=== PATIENT | female | born 1960 | race Caucasian/White ===

== ENCOUNTER 2017-07-10 08:13 | Day surgery (SDC) | payer BC ==
[~2017-07-10] VITALS: Ht 165.1 cm; Wt 66.2 kg
--- NOTE | ~2017-07-10 | OP ---
PATIENT NAME: IRENE ADAME MEDICAL RECORD: [id number] :56 LOCATION:D.OPS ADMISSION DATE: SURGEON: ONOFRE HOPE MD DATE OF OPERATION: 07/10/2017 PREOPERATIVE DIAGNOSES: Tubular adenoma of the colon, across from the ileocecal valve. POSTOPERATIVE DIAGNOSES: Tubular adenoma of the colon, across from the ileocecal valve with a secondary cecal polyp, which was a sessile polyp and was 1.1 cm in greatest dimension. PROCEDURES: 1. Total colonoscopy to cecum. 2. Hot biopsy forceps polypectomy times 1. 3. Polypectomy of the larger polyp, which was along the fold and was a 3.1 cm polyp, the argon plasma director electronics was utilized with the right colon setting in the forced mode. The risks, possible complications and alternatives to procedure were explained to the patient. She elects to proceed. OPERATIVE COURSE: The patient was conveyed to the operating room electively on 07/10/2017. General anesthesia was induced by the anesthesia staff. The patient was placed in the De [place] position. A digital rectal examination was performed. A colonoscope was inserted through the anus. It was easily advanced to the cecum. The prep was adequate. A cecal hot biopsy forceps polypectomy was performed and the polyp was removed in its entirety. Cold endoscopic biopsies were performed of the larger polyp and I ablated the polypoid base with the argon plasma director electronics. I then slowly withdrew the endoscope. The pullback was greater than a 15-minute pullback. I dragged the folds. I irrigated and aspirated extensively. A combination of normal imaging as well as narrow band imaging was performed. A retroflexed view was obtained in the rectum. I then unretroflexed the scope and removed it under direct vision. I will see the patient in my office in 2-3 weeks. I will plan for her next colonoscopy to take place with the argon plasma director electronics in 1 year. TRANSINT:[id number] Voice Confirmation ID: [id number] DOCUMENT ID: [id number] ONOFRE HOPE MD at 1042 CC: NAHUM LOU DO [id number] DICTATION DATE: 07/10/17 1108 PILOT BOAT OPERATOR: 07/10/17 1154 [facility] 07/10/17 [place] [id number] [place], [place] [id number]
[~2017-07-10 08:13] MED LIST: OMEPRAZOLE40 MG PO
[2017-07-10 09:28] VITALS: BP 138/75; Ht 165.1 cm; Wt 66.2 kg
[2017-07-10 10:05] LABS: HEMOGLOBIN 12.5 g/dL (12-16); MCH 28.5 pg (26.0-34.0); MCHC 32.1 g/dL (31.0-37.0); MEAN PLATELET VOLUME 10.9 fL (7.4-10.4); RBC 4.38 10x6/uL (4.00-5.40); WBC 6.3 10x3/uL (4.8-10.8)
== END 2017-07-10 14:40 | disposition home or self-care (01) ==
LOC: D.OPS 08:13 → D.PAN 11:00 → D.OPS 14:40
PROVIDERS: Anesthesiology
DX: D12.6 Benign neoplasm of colon, unspecified (principal); D12.0 Benign neoplasm of cecum; K44.9 Diaphragmatic hernia without obstruction or gangrene; K22.70 Barrett's esophagus without dysplasia; Z01.812 Encounter for preprocedural laboratory examination

== ENCOUNTER 2018-07-22 06:35 | Day surgery (SDC) | payer BC ==
[~2018-07-22] VITALS: Ht 165.1 cm; Wt 63.6 kg
[2018-07-22 07:04] LABS: BASOPHILS 0 % (0-2); EOSINOPHILS 2.7 % (0-7); HEMATOCRIT 37.7 % (36.0-48.0); HEMOGLOBIN 12.1 g/dL (12-16); LYMPHOCYTES 46.9 % (15-50); MCHC 32.1 g/dL (31.0-37.0); MCV 90.4 fL (80.0-100.0); MEAN PLATELET VOLUME 10.5 fL (7.4-10.4); NEUTROPHILS 42.4 % (40-80); PLATELET COUNT 187 10x3/uL (130-400); RBC 4.17 10x6/uL (4.00-5.40); RDW 13.4 % (11.5-14.5); WBC 5.1 10x3/uL (4.8-10.8)
[2018-07-22 07:24] LABS: ANION GAP 14.2 mmol/L (8-16); CALCIUM 8.8 mg/dL (8.5-10.1); CREATININE - SERUM 0.9 mg/dL (0.6-1.3); POTASSIUM - SERUM 4.2 mmol/L (3.5-5.1)
[2018-07-22] MEDS ORDERED: ACETAMINOPHEN325 MG PO (07:29)
[2018-07-22 08:28] VITALS: BP 115/63; Ht 165.1 cm; Wt 63.6 kg
--- NOTE | 2018-07-22 12:27 | NUR ---
DC INSTRUCTIONS GIVEN TO PT/FAMILY. STATE UNDERSTANDING . DC'D IV CATH FULLY INTACT.
--- NOTE | 2018-07-22 12:32 | NUR ---
PT LEFT UNIT VIA WC AT 1230
--- NOTE | 2018-07-23 14:51 | OP ---
PATIENT NAME: IRENE ADAME MEDICAL RECORD: [id number] :56 LOCATION:D.OPS ADMISSION DATE: SURGEON: ONOFRE HOPE MD DATE OF OPERATION: 07/22/2018 PREOPERATIVE DIAGNOSES: 1. History of tubular adenoma of the cecum. 2. History of tubular adenoma across from the ileocecal valve. POSTOPERATIVE DIAGNOSES: 1. History of tubular adenoma of the cecum. 2. History of tubular adenoma across from the ileocecal valve with no evidence of regrowth of these polyps. 3. Two flat polyps were noted and are best seen by narrow band imaging. PROCEDURES: 1. Total colonoscopy to cecum. 2. Hot biopsy forceps polypectomies times 2. 3. Cold endoscopic biopsy of the ascending colon scar. SURGEON: Onofre Hope MD UNDER GROUND MINER: None. BLOOD LOSS: Minimal. ANESTHESIA: IV sedation. COMPLICATIONS: None. The risks, possible complications, and alternatives to the procedure were explained to the patient. She elects to proceed. Discussion specifically included, but was not limited to, bleeding requiring emergency reoperation, infection, endoscopic perforation. ENDOSCOPIC COURSE: The patient was conveyed to endoscopy suite electively on 07/22/2018. IV sedation was induced by the anesthesia staff. The patient was placed in the De [place] position. A digital rectal examination was performed. A colonoscope was inserted through the anus. It was easily advanced to the cecum. The prep was excellent. I slowly withdrew the endoscope. A combination of normal imaging and narrow band imaging were utilized. There were 2 polyps noted. These are both flat polyps that the best seen through narrow band imaging. One polyp was a 7-mm polyp, the other was a 1.1 cm polyp. Both were removed in their entireties utilizing the hot biopsy forceps polypectomy technique. I then performed cold endoscopic biopsy of the scar at the previous polypectomy site across from the ileocecal valve. I slowly withdrew the endoscope. I dragged the folds. The pullback was greater than 13-minute pullback. A retroflexed view was obtained in the rectum. I then unretroflexed the scope and removed it under direct vision. I plan to see the patient in my office in 2-3 weeks. It is very likely I will return her endoscopic needs back over to Dr. Lewis at that time. TRANSINT:[id number] Voice Confirmation ID: [id number] DOCUMENT ID: [id number] OPERATIVE REPORT [id number] IRENE ADAME, ONOFRE NOYOLA at 1451 CC: AYSHA NORRIS and NAHUM LEWIS DO [id number] DICTATION DATE: 07/22/18 1129 PATIENT SITTER: 07/22/18 1238 [facility] 07/22/18 [place] [id number] [place] [id number]
--- NOTE | 2018-07-23 14:51 | HP ---
PATIENT: IRENE ADAME MEDICAL RECORD: [id number] ACCOUNT: [id number] LOCATION:[facility] : 56 ADMISSION DATE: 07/22/18 PCP: AYSHA NORRIS HISTORY AND PHYSICAL EXAMINATION HISTORY OF PRESENT ILLNESS: The patient has a history of complex polyps. She had a tubular adenoma across from the ileocecal valve as well as another sessile polyp in the cecum. She underwent polypectomies utilizing the argon plasma supervisor mirror fabrication back in 07/10/2017. The pathology revealed that both polyps were tubular adenomas. PAST MEDICAL AND SURGICAL HISTORY: Gastroesophageal reflux, history of CVA. PAST SURGICAL HISTORY: Craniotomy. SOCIAL HISTORY: Ex-smoker. HOME MEDICINES: Tylenol. ALLERGIES: SULFA. PHYSICAL EXAMINATION: GENERAL: The patient does not appear acutely ill. She does not appear chronically ill. VITAL SIGNS: Reviewed. EARS: External ears appear normal. EYES: Extraocular movements are intact. NECK: Trachea midline. CHEST: No intercostal retractions. PULMONARY: Nonlabored. IMPRESSION: History of cecal and ascending colon polyps. PLAN: Colonoscopy and polypectomy utilizing the argon plasma supervisor mirror fabrication. TRANSINT:[id number] Voice Confirmation ID: [id number] DOCUMENT ID: [id number] ONOFRE HOPE MD at 1451 CC: AYSHA NORRIS and NAHUM LOU DO [id number] DICTATION DATE: 07/22/18 1055 SHAPE HAND: 07/22/18 1134 [facility] 07/22/18 [place] [id number] [place] [id number]
== END 2018-07-22 12:30 | disposition home or self-care (01) ==
LOC: D.OPS 06:35
PROVIDERS: Anesthesiology; ATTEND Surgery
DX: D12.0 Benign neoplasm of cecum (principal); D12.3 Benign neoplasm of transverse colon; Z01.812 Encounter for preprocedural laboratory examination

== ENCOUNTER → 2019-09-15 09:19 | Outpatient (CLI) | payer BC ==
[2018-07-22 08:28] VITALS: BMI 23.3
[~2019-09-15 09:19] MED LIST changes: +ACETAMINOPHEN325 MG PO
== END | disposition home or self-care (01) ==
LOC: D.US 08-24 09:30
PROVIDERS: ATTEND Internal Medicine Gastroenterology
DX: R10.11 Right upper quadrant pain (principal); K21.9 Gastro-esophageal reflux disease without esophagitis

== ENCOUNTER 2020-01-12 05:41 | Day surgery (SDC) | payer BC ==
[~2020-01-12] VITALS: Ht 165.1 cm; Wt 65.9 kg
[2020-01-12 06:13] LABS: BASOPHILS 0.2 % (0-2); EOSINOPHILS 2.1 % (0-7); HEMATOCRIT 41.6 % (36.0-48.0); IMMATURE GRANULOCYTES 0.2 % (0-5); LYMPHOCYTES 35.3 % (15-50); MCH 28.1 pg (26.0-34.0); MCHC 31.3 g/dL (31.0-37.0); MCV 89.8 fL (80.0-100.0); MEAN PLATELET VOLUME 10.2 fL (7.4-10.4); NEUTROPHILS 55.2 % (40-80); PLATELET COUNT 224 10x3/uL (130-400); RBC 4.63 10x6/uL (4.00-5.40); RDW 13.1 % (11.5-14.5); WBC 5.8 10x3/uL (4.8-10.8)
[2020-01-12 06:15] LABS: APTT 30.3 SECONDS (22.8-39.4); INR 0.89 (0.85-1.17)
[2020-01-12 06:50] VITALS: Ht 165.1 cm; Wt 65.9 kg
[2020-01-12] MEDS ORDERED: CITRACAL (06:57)
--- NOTE | 2020-01-12 10:24 | NUR ---
[address] HOPE. PROCEDURE FINDINGS DISCUSSED WITH PATIENT. Cecilia BAXTER R.N.
--- NOTE | 2020-01-12 10:55 | NUR ---
1047 DRESSED. AWAKE & ALERT. GIVEN DISCHARGE INFORMATION INCLUDING: MED REC, SHEET LISTING NSAIDS TO AVOID, RTC APPT. & [facility] POST ENDOSCOPIC D/C INSTRUCTIONS. VOICED UNDERSTANDING. TO PRIVATE CAR PER WHEELCHAIR BY Effie BARRERA R.N.. HOME WITH . Cecilia BAXTER R.N.
--- NOTE | 2020-01-12 15:11 | HP ---
PATIENT: IRENE ADAME MEDICAL RECORD: [id number] ACCOUNT: [id number] LOCATION:[facility] : 56 ADMISSION DATE: 01/12/20 PCP: AYSHA NORRIS HISTORY AND PHYSICAL EXAMINATION HISTORY OF PRESENT ILLNESS: The patient has a complex polyp, which is a 2.5 polyp in the ascending colon across from the ileocecal valve. She is here for colonoscopy with polypectomy. ALLERGIES: SULFA. HOME MEDICATIONS: Please see the nursing list. PAST MEDICAL AND SURGICAL HISTORY: section, diverticulitis, reflux, colon polyps, tubular adenoma. PHYSICAL EXAMINATION: GENERAL: The patient does not appear acutely ill. She does not appear chronically ill. VITAL SIGNS: Reviewed. EARS: External ears appear normal. EYES: Extraocular movements are intact. NECK: Trachea is midline. CHEST: No intercostal retractions. PULMONARY: Nonlabored, no stridor. IMPRESSION: Complex polyp in the ascending colon across from the ileocecal valve. PLAN: Colonoscopy with polypectomy. TRANSINT:[id number] Voice Confirmation ID: [id number] DOCUMENT ID: [id number] ONOFRE HOPE MD at 1511 CC: AYSHA NORRIS and NAHUM LOU DO [id number] DICTATION DATE: 01/12/20926 HUMAN RESOURCES TRAINER: 01/12/20 1015 [facility] 01/12/20 [facility] [address] [place] [address]
--- NOTE | 2020-01-13 12:32 | OP ---
PATIENT NAME: IRENE ADAME MEDICAL RECORD: [id number] :56 LOCATION:D.OPS ADMISSION DATE: SURGEON: ONOFRE HOPE MD DATE OF OPERATION: 01/12/2020 PREOPERATIVE DIAGNOSIS: Ascending colon polyp across from the ileocecal valve. POSTOPERATIVE DIAGNOSIS: Ascending colon polyp across from the ileocecal valve. PROCEDURES: 1. Total colonoscopy to cecum. 2. Hot biopsy forceps polypectomy times 1. SURGEON: Onofre Hope MD MISSILE TECHNICIAN: None. BLOOD LOSS: Minimal. ANESTHESIA: IV sedation. COMPLICATIONS: None. The risks, possible complications and alternatives to the procedure were explained to the patient. She elects to proceed. OPERATIVE COURSE: The patient was conveyed to the gastroenterology laboratory on 01/12/2020. IV sedation was induced by the anesthesia staff. The patient was placed in the De [place] position. A digital rectal examination was performed. A colonoscope was inserted through the anus. It was easily advanced to the cecum. The prep was adequate. The appendiceal orifice and ileocecal valve were easily identified. The polyp was best seen with narrow band imaging. It was removed in its entirety utilizing the hot biopsy forceps polypectomy technique. I slowly withdrew the endoscope. I irrigated and aspirated extensively. I dragged the folds. The pullback was greater than a 14-minute pullback. A retroflexed view was obtained in the rectum. This revealed enlarged internal hemorrhoids. I then unretroflexed the scope and removed it under direct vision. I will see the patient in my office in 2-3 weeks. I will plan for her next surveillance colonoscopy to take place in 3 years. TRANSINT:[id number] Voice Confirmation ID: [id number] DOCUMENT ID: [id number] ONOFRE HOPE MD at 1232 CC: AYSHA NORRIS and NAHUM LOU DO [id number] DICTATION DATE: 01/12/20 1006 CEREAL CHEMIST: 01/12/20 1845 [facility] 01/12/20 [facility] [address] [place] [address]
== END 2020-01-12 10:47 | disposition home or self-care (01) ==
LOC: D.OPS 05:41
PROVIDERS: Anesthesiology; ATTEND Surgery
DX: K63.5 Polyp of colon (principal); Z86.010 Personal history of colon polyps

== ENCOUNTER 2020-01-15 13:16 | Observation (INO) | payer BC ==
[~2020-01-15] VITALS: Ht 165.1 cm; Wt 65.9 kg
[~2020-01-15 13:16] MED LIST changes: +CITRACAL PO
[2020-01-15 14:24] LABS: BASOPHILS 0.1 % (0-2); EOSINOPHILS 0.8 % (0-7); HEMATOCRIT 37.5 % (36.0-48.0); HEMOGLOBIN 11.9 g/dL (12-16); IMMATURE GRANULOCYTES 0.2 % (0-5); LYMPHOCYTES 17.1 % (15-50); MCH 28.5 pg (26.0-34.0); MCHC 31.7 g/dL (31.0-37.0); MCV 89.7 fL (80.0-100.0); MEAN PLATELET VOLUME 10.8 fL (7.4-10.4); MONOCYTES 5.3 % (2-11); NEUTROPHILS 76.5 % (40-80); PLATELET COUNT 220 10x3/uL (130-400); RBC 4.18 10x6/uL (4.00-5.40); RDW 12.9 % (11.5-14.5); WBC 11.6 10x3/uL (4.8-10.8)
[2020-01-15 14:31] LABS: CALC OSMOLALITY 275 mosm/kg (275-300); CALCIUM 9.6 mg/dL (8.5-10.1); CHLORIDE - SERUM 104 mmol/L (98-107); CREATININE - SERUM 0.8 mg/dL (0.6-1.3); GLUCOSE 108 mg/dL (74-106); POTASSIUM - SERUM 4.7 mmol/L (3.5-5.1); SODIUM 137 mmol/L (136-145); UREA NITROGEN 14 mg/dL (7-18); eGFR NON AFRICAN AMERICAN 77 mL/min (90-120)
[2020-01-15 14:36] LABS: APTT 26.1 SECONDS (22.8-39.4); INR 0.94 (0.85-1.17); PROTIME 12.5 SECONDS (11.6-15.0)
[2020-01-15 14:40] LABS: BILIRUBIN NEGATIVE (NEGATIVE); KETONE NEGATIVE (NEGATIVE); NITRITE NEGATIVE (NEGATIVE); UROBILINOGEN NORMAL mg/dL (< 2)
[2020-01-15 14:41] LABS: BACTERIA FEW HPF (NONE SEEN); EPITHELIAL CELLS 0-5 /hpf (0-5); WHITE CELLS - URINE 0-5 HPF (0-4)
[2020-01-15 14:48] LABS: ALKALINE PHOSPHATASE 93 U/L (30-120); ALT (SGPT) 22 U/L (10-68); BILIRUBIN - TOTAL 0.32 mg/dL (0.2-1.3); CKMB 0.9 U/L (0.0-3.6); CREATINE KINASE 79 UL (21-215); PROTEIN - SERUM 7.3 g/dL (6.4-8.2); TROPONIN-I < 0.017 ng/mL (0.000-0.060)
--- NOTE | 2020-01-15 16:07 | NUR ---
PT TO CT
[2020-01-15 16:51] VITALS: BP 144/75
[2020-01-15 17:17] VITALS: BP 138/72
[2020-01-15 18:16] VITALS: BP 132/63
--- NOTE | 2020-01-15 19:05 | NUR ---
REPORT TO JOSEY YATES
--- NOTE | 2020-01-15 20:59 | NUR ---
RECEIVED TO ROOM. ALERT.ORIENTED.NO COMPLAINTS VOICED. ORIENTED ROOM. NO DISTRESS NOTED. RESP UNLABORED.
[2020-01-15 21:30] VITALS: BP 158/71
[2020-01-15 21:33] LABS: HEMATOCRIT 34.1 % (36.0-48.0)
[2020-01-15 22:13] VITALS: BP 153/77; Ht 165.1 cm; Wt 65.9 kg
[2020-01-16 05:07] VITALS: BP 131/71
[2020-01-16 06:46] LABS: BASOPHILS 0.2 % (0-2); EOSINOPHILS 1.8 % (0-7); HEMATOCRIT 33.8 % (36.0-48.0); HEMOGLOBIN 10.6 g/dL (12-16); IMMATURE GRANULOCYTES 0.2 % (0-5); LYMPHOCYTES 32.4 % (15-50); MCH 28.2 pg (26.0-34.0); MCHC 31.4 g/dL (31.0-37.0); MCV 89.9 fL (80.0-100.0); MEAN PLATELET VOLUME 11.2 fL (7.4-10.4); MONOCYTES 5.6 % (2-11); NEUTROPHILS 59.8 % (40-80); PLATELET COUNT 205 10x3/uL (130-400); RBC 3.76 10x6/uL (4.00-5.40); RDW 13.1 % (11.5-14.5); WBC 6.6 10x3/uL (4.8-10.8)
[2020-01-16 07:10] LABS: ALBUMIN 3.4 g/dL (3.4-5.0); ALKALINE PHOSPHATASE 78 U/L (30-120); ALT (SGPT) 20 U/L (10-68); BILIRUBIN - TOTAL 0.45 mg/dL (0.2-1.3); CALC OSMOLALITY 279 mosm/kg (275-300); CALCIUM 8.6 mg/dL (8.5-10.1); CARBON DIOXIDE 27.5 mmol/L (21.0-32.0); CHLORIDE - SERUM 107 mmol/L (98-107); CREATININE - SERUM 0.7 mg/dL (0.6-1.3); GLUCOSE 91 mg/dL (74-106); POTASSIUM - SERUM 4.1 mmol/L (3.5-5.1); PROTEIN - SERUM 5.9 g/dL (6.4-8.2); SODIUM 141 mmol/L (136-145); eGFR NON AFRICAN AMERICAN 90 mL/min (90-120)
[2020-01-16 07:12] LABS: UREA NITROGEN 10 mg/dL (7-18)
--- NOTE | 2020-01-16 07:56 | NUR ---
resting in bed, no distress noted, wanting to go home, iv infusing, denies bloody stool
[2020-01-16 08:12] VITALS: BP 133/69
[2020-01-16 09:16] LABS: CHOL - HDL RATIO 3.5 ratio (2.3-4.1); LDL-HDL RATIO 2.1 ratio (1.5-3.5)
[2020-01-16 12:14] LABS: HEMATOCRIT 32.9 % (36.0-48.0); HEMOGLOBIN 10.5 g/dL (12-16)
[2020-01-16 12:16] VITALS: BP 120/65
[2020-01-16 16:20] VITALS: BP 124/70
--- NOTE | 2020-01-16 18:30 | NUR ---
SPOKE WITH DR JULES ABOUT D/C, PT TO KEEP ALL FOLLOW UP APPTS BEFORE
--- NOTE | 2020-01-16 18:50 | NUR ---
REVIEWED DC ORDERS WITH PT, VOICED NO CONCERNS, REMOVED IV, TIP INTACT, TAKEN OUT PER W/C
== END 2020-01-16 19:00 | disposition home or self-care (01) ==
LOC: D.ER 13:16 → OBSVTIME 17:02 → D.MS 17:02
PROVIDERS: Family Medicine; ADMIT Surgery; ATTEND Surgery
DX: K92.2 Gastrointestinal hemorrhage, unspecified (principal); Z98.890 Other specified postprocedural states; Z86.73 Personal history of transient ischemic attack (TIA), and cerebral infarction without residual deficits; K21.9 Gastro-esophageal reflux disease without esophagitis